=== PATIENT | female | born 1940 | race Caucasian/White ===

== ENCOUNTER 2016-07-20 13:58 | Emergency (ER) | payer MEDICARE ==
[2016-07-20 14:40] LABS: BASOPHILS 0.2 %; BASOPHILS ABSOLUTE 0.02 10/3/uL (0.0-0.16); EOSINOPHILS 0.6 %; EOSINOPHILS ABSOLUTE 0.06 10/3/uL (0.0-0.53); HEMATOCRIT 45.9 % (36.0-48.0); IMMATURE GRANULOCYTES 0.2 %; IMMATURE GRANULOCYTES ABSOLUTE 0.02 10/3/uL (0.0-0.11); LYMPHOCYTES 26.9 %; LYMPHOCYTES ABSOLUTE 2.73 10/3/uL (0.67-4.30); MEAN CORPUS HGB CONC 32.7 g/dL (32.0-36.0); MEAN CORPUSCULAR VOLUME 88.6 fL (80-100); MEAN PLATELET VOLUME 10.5 fL (9.2-13.0); MONOCYTES 5.7 %; MONOCYTES ABSOLUTE 0.58 10/3/uL (0.21-1.20); NEUTROPHILS 66.4 %; NEUTROPHILS ABSOLUTE 6.75 10/3/uL (2.02-8.40); PLATELET COUNT 238 10/3/uL (150-400); RBC DISTRIBUTION WIDTH 15.8 % (12.0-16.0); RED CELL COUNT 5.18 10/6/uL (4.0-5.6); WHITE BLOOD CELLS 10.2 10/3/uL (4.5-10.5)
[2016-07-20 14:41] LABS: MANUAL DIFF NO %
[2016-07-20 14:49] LABS: INTERNATIONAL NORMAL RATI 1.1 UNITS (-); PARTIAL THROMBO TIME 34.9 SEC (22.5-37.2); PROTIME (NOT ORD) 13.9 SEC (12.0-14.5)
[2016-07-20 14:57] LABS: CALCIUM, SERUM 9.2 MG/DL (8.5-10.4); CHEST PAIN PROFILE TAT 0 Hrs 21 Mins; CHLORIDE, SERUM 107 MMOL/L (96-112); CREATININE 1.23 MG/DL (0.55-1.02); GFR AFRICAN AMERICAN 50 ML/MIN (>=60); GFR NON AFRICAN AMERICAN 43 ML/MIN (>=60); GLUCOSE, SERUM 94 MG/DL (60-99); POTASSIUM, SERUM 4.7 MMOL/L (3.5-5.3); SODIUM, SERUM 139 MMOL/L (135-148); TROPONIN I <0.02 NG/ML (<0.05)
[2016-07-20 15:05] LABS: BUN (BLOOD UREA NITROGEN) 25 MG/DL (6-23); CO2 (CARBON DIOXIDE) 20 MMOL/L (24-34)
== END 2016-07-20 15:00 | disposition left against medical advice (07) ==
LOC: ER 13:58
PROVIDERS: Emergency Medicine
DX: R07.9 Chest pain, unspecified (principal); Z53.21 Procedure and treatment not carried out due to patient leaving prior to being seen by health care provider
CPT/HCPCS: 71020; 80048; 83735; 84484; 85025; 85610; 85730; 93005

== ENCOUNTER 2016-07-22 10:35 | Inpatient (IN) | payer MEDICARE, BC ==
--- NOTE | ~2016-07-22 | CN ---
Consultation Report [facility] [address] [place]. [address] NAME: RADHA LE : 42 STATUS : ADM IN PAT#: [id number] AGE: 76 ADM/REG DATE : 07/22/16 MR#: [id number] REPORT SERV DATE: 07/23/16 DICTATED BY: BABAK BELTRAN DATE: 07/22/16 REPORT STATUS : Draft TRANSCRIBED BY: MODL DATE: 07/22/16 CONSULTATION DATE OF CONSULTATION: 07/22/2016 This is a late note dictation for consult which took place at roughly 1300 on 07/22/2016. CHIEF COMPLAINT: Right upper quadrant pain. HISTORY OF PRESENT ILLNESS: This is a 76-year-old female, evaluated in the emergency department for four to five day history of right upper quadrant pain which radiates to the epigastrium and the back. She actually presented to the emergency department two days prior but left without being evaluated per patient report. She denies any fever at home but does endorse some chills. In the emergency department, she was evaluated with CT scan which showed cholelithiasis, gallbladder wall thickening to roughly 7 mm, surrounding inflammation, pericholecystic fluid consistent with cholecystitis. Additionally, white blood cell count was 14.7 and total bilirubin of 2.0 with direct component of 1.2. She did show mild JUAN with creatinine increase up to 1.1. Her stay in the emergency department was complicated by new onset atrial fibrillation with heart rate into the 160s which by the time of this consultation, the patient had been placed on diltiazem drip and heart rate had slowed, was still in the 130s. She denies any history of atrial fibrillation, is not on any anticoagulation. General Surgery asked to evaluate for acute cholecystitis. The patient does endorse nausea and vomiting associated with the right upper quadrant pain and does state that she has postprandial pain especially after fatty foods. She denies any diarrhea but has been unable to eat for the last three to four days. REVIEW OF SYSTEMS: The patient denies any mental illness or change in memory status. She denies any numbness or tingling, loss of hearing loss or speech or other neurologic symptoms. Constitutional symptoms are negative for weight loss, night sweats or fever. She has had no change in her vision and denies any scleral icterus. She denies any tinnitus or decreased hearing. She did not have any recent colds or sinus drainage or sinus pain. She denies cough, tonsillar exudates or sore throat. She denies any shortness of breath, dyspnea on exertion or chest pain. She does feel palpitations and endorses them during the interview. Otherwise, she has no cardiovascular complaints, radiating chest pain or jaw pain. She has had no change in her stooling habits and denies any acholic stools. She denies any endocrine abnormalities, hot or cold flashes or unexplained weight gain or loss. No goiters. There has been no change in her urinary habits and she denies any dark-colored urine or pneumaturia. She denies any history of liver, gallbladder or pancreas disease. She denies reflux or gastric ulcers. 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 She also reports left knee pain and has had arthroscopy in the past. No known knee replacements. She denies any depression or anxiety or any other mood disorders. The rest review of systems are otherwise negative except as per HPI. Consultation Report [address] [place]. [address] NAME: RADHA LE : 42 STATUS : ADM IN [facility]#: [id number] AGE: 76 ADM/REG DATE : 07/22/16 MR#: [id number] REPORT SERV DATE: 07/23/16 DICTATED BY: BABAK BELTRAN DATE: 07/22/16 REPORT STATUS : Draft TRANSCRIBED BY: REINA DATE: 07/22/16 PAST MEDICAL HISTORY: 1. Coronary artery disease with history of coronary artery intervention 14 years ago with stent placement. 2. Obesity. 3. Dyslipidemia. 4. Hypertension. 5. 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 6. New onset atrial fibrillation. PAST SURGICAL HISTORY: The patient underwent hysterectomy, has had tonsillectomy, and appendectomy in the past. MEDICATIONS: Please see the patient's electronic medical record for complete list and dosing. Following is a list only. 1. Aspirin. 2. Cholecalciferol. 3. Coenzyme Q10. 4. Flaxseed oil. 5. Lisinopril and hydrochlorothiazide. 6. Magnesium oxide. 7. Probiotic. 8. Multivitamin. 9. [place] spray as needed. ALLERGIES: TO PENICILLIN AND SULFA. FAMILY HISTORY: Significant for brother with diabetes and chronic kidney disease. SOCIAL HISTORY: The patient quit smoking 14 years ago after her coronary artery intervention. She does drink occasional alcohol roughly once every week or so. She denies any use of recreational or illegal drugs. She reports being retired from the [employer] and stays very active. PHYSICAL EXAMINATION: VITAL SIGNS: Updated vital signs, temperature 97.3, heart rate 115, respirations 20, blood pressure 112/59. GENERAL APPEARANCE: She is alert and oriented, in no distress. She is pleasant in conversation. HEAD, EYES, EARS, NOSE, AND THROAT: There is no scleral icterus. There are no facial lesions. Conjunctiva and oropharynx are pink and moist. Extraocular muscles are grossly intact. Hearing is grossly normal. There is no rhinorrhea. NECK: Examination of the neck reveals no cervical lymphadenopathy. No thyromegaly. Trachea is midline. CHEST: Clear lungs bilaterally with no wheezes or rhonchi. HEART: Heart rate is irregularly irregular and pulses are palpable in the extremities. Consultation Report [address] [address] NAME: RADHA LE : 42 STATUS : ADM IN [facility]#: [id number] AGE: 76 ADM/REG DATE : 07/22/16 MR#: [id number] REPORT SERV DATE: 07/23/16 DICTATED BY: BABAK BELTRAN DATE: 07/22/16 REPORT STATUS : Draft TRANSCRIBED BY: REINA DATE: 07/22/16 ABDOMEN: Soft, nondistended, and obese. She has well healed lower abdominal scar. She is tender to palpation in the right upper quadrant. There are no hernias. EXTREMITIES: Examination of extremities reveals cyanosis on the right with weakness at the right lower extremity. She has some swelling and tenderness to palpation of the right leg with some mild pitting edema below the knee. She is able to move her extremities. PSYCHIATRIC: Appropriate mood and affect with normal speech patterns. NEUROLOGIC: Significant for weakness in the right lower extremity. Otherwise, no focal deficits. LABORATORY RESULTS: Significant for white blood cell count of 14.3, hemoglobin of 14.1, platelets of 232. Her lactate is 1.1. Her comprehensive metabolic panel is significant for a mild metabolic alkalosis with carbon dioxide of 20, creatinine 1.1, glucose of 115. Total bilirubin is 2.0 and direct component is 0.4. Troponins are negative and lipase is 148. CT scan of the abdomen and pelvis as per history of present illness. ASSESSMENT AND PLAN: This is a 76-year-old female with likely acute cholecystitis and new onset atrial fibrillation. At this time, there is no surgical emergency. We will opt for medical optimization to better control of heart rate as cardiac consultation is pending at this time. The patient will be kept n.p.o. with administration of IV antibiotics and pain medicine. She will need cholecystectomy. Given her elevated bilirubin, we will recheck a CMP in the morning. Plans for possible cholecystectomy tomorrow pending the outcome of cardiac workup. She will be admitted to the Hospitalist on the Telemetry Floor. We will gladly follow along. Plan was discussed with Dr. Beltran. DICTATED BY: MD CHING Lazo/MODL Herrera Beltran M.D. / [id number] CC: Usha Juarez M.D.
--- NOTE | ~2016-07-22 | OP ---
Record Of Operation [facility] [address] [place]. [address] NAME: RADHA LE : 42 STATUS : ADM IN [facility]#: [id number] AGE: 76 ADM/REG DATE : 07/22/16 MR#: [id number] REPORT SERV DATE: 07/24/16 DICTATED BY: BABAK BELTRAN DATE: 07/23/16 REPORT STATUS : Draft TRANSCRIBED BY: MODL DATE: 07/23/16 DATE OF PROCEDURE: 07/23/2016 PREOPERATIVE DIAGNOSIS: Acute cholecystitis. POSTOPERATIVE DIAGNOSIS: Acute cholecystitis. PROCEDURE: Laparoscopic cholecystectomy. SURGEON: Herrera Beltran M.D. RESIDENT: Chema Hernandez MD. ANESTHESIA: General. ESTIMATED BLOOD LOSS: 30 mL. SPECIMENS: Gallbladder. COMPLICATIONS: None. INDICATIONS: This is a 76-year-old female who presented to the hospital with severe abdominal pain, was worked up and found have imaging as well as signs and symptoms associated with acute cholecystitis, Surgery was consulted, and the patient was consented to the risks, benefits, alternatives of laparoscopic cholecystectomy and likes to go forward. DESCRIPTION OF PROCEDURE: The patient was taken to the operating room and placed on the operating table. She was prepped and draped in a normal sterile fashion after which a formal time-out was performed. Skin edges were used to grasp at the umbilicus after which incision was made at the umbilicus, soft tissue dissected down to the level of the fascia. The patient had a very large abdominal wall and this was achieved with some difficulty. The fascia was incised after which trocar was placed in the abdomen. The abdomen was insufflated. The camera was placed in the 10 trocar to inspect the abdomen, there was found to be no injury to the bowel underneath the trocar placement. After this was done, three 5 mm trocars were placed, two in the right subcostal and one in the xiphoid area. Once this was done, the gallbladder was able to be seen, it was very edematous and inflamed. We were unable to grasp it initially and actually a small hole was made in the liver with a grasper and the gallbladder was suctioned out, most of the bile was found to be dark brown, cloudy bile. Once this was done, there were found to be several attachments of omentum in the colon to the gallbladder and these were carefully and bluntly taken down using blunt suction device as well as [place] forceps. Once these were taken down, we began to address the ductal structures and these were dissected out again using a [place] forceps as well as suction device. Cystic duct was located relatively easy; however, what appeared to be a replaced right hepatic or accessory artery, and this was carefully dissected around both sides until the critical view of safety could be achieved with branch of the artery coming directly off going into the gallbladder. Once we were comfortable with the anatomy, again Record Of Operation [facility] [address] [place]. [address] NAME: RADHA LE : 42 STATUS : ADM IN PAT#: [id number] AGE: 76 ADM/REG DATE : 07/22/16 MR#: [id number] REPORT SERV DATE: 07/24/16 DICTATED BY: BABAK BELTRAN DATE: 07/23/16 REPORT STATUS : Draft TRANSCRIBED BY: MODL DATE: 07/23/16 having seen the critical view of safety, locking clips were placed in the cystic duct and cystic artery, and these were ligated with sharp scissors. Once this was done, hook electrocautery was used to dissect the gallbladder off the gallbladder fossa and the gallbladder wall was very edematous, then slowly, however, the gallbladder was able to be removed. Initially, we had to leave a portion of the gallbladder wall in the liver, but once the gallbladder was taken out of the field, this gallbladder wall was dissected off and included with the specimen. Several points on the gallbladder fossa were cauterized for effective hemostasis. We did notice some bowel staining from the edge of the liver near where the ductal structure was running up and down well away from the cord structures before. This was investigated and washed off and found to have a small leakage of bile with small accessory biliary duct identified. Once this was done, several clips were placed over this duct until leaking stopped, so we watched this duct for a long period of time after and were satisfied that the bile leaking had stopped. Due to this, however, a 14-Arturo drain was placed in the lateral most trocar hole and left in the patient. Once this was done, the abdomen was thoroughly washed out with saline and irrigated out. The trocars were removed under direct visualization with no evidence of any bleeding and it was desufflated with the tip of pull-tip sucker. The fascial incision was closed with 0 Vicryl suture, essentially two sutures in [id number] fashion with good fascial closure. The umbilical incision was thoroughly washed out after which a drain stitch was placed over the drain. The two 5 mm trocars closed with one 4-0 Monocryl suture was placed in the umbilicus, but given the large depth of the umbilicus, we elected to leave the deeper portion of the incision open for drainage. This was dressed with a 4 x 4 and tape. The other incisions dressed with Band-Aids. The patient was subsequently extubated without event and is being taken to the PACU. DICTATED BY: MD MARQUEZ Willis/REINA Herrera Beltran M.D. / [id number] CC: Usha Juarez M.D.
--- NOTE | ~2016-07-22 | CN ---
Consultation Report [facility] [address] [place]. [address] NAME: RADHA LE : 42 STATUS : ADM IN PAT#: [id number] AGE: 76 ADM/REG DATE : 07/22/16 MR#: [id number] REPORT SERV DATE: 07/22/16 DICTATED BY: DATE: REPORT STATUS : Draft TRANSCRIBED BY: MODAndreea DATE: 07/22/16 CONSULTATION DATE OF CONSULTATION: 07/22/2016 PRIMARY [employer] EXECUTIVE PRODUCER: Eduin Carpenter M.D. CHIEF COMPLAINT/REASON FOR CONSULT: Atrial fibrillation with RVR. HISTORY OF PRESENT ILLNESS: Mrs. Radha Le is a very pleasant 76-year-old female, who has been having vomiting and abdominal pain. She visited the emergency department on 07/20/2016 and left at that time without being seen because she was frustrated with the length of time it took for her to be evaluated. She re-presented to the hospital today with increasing vomiting and abdominal pain. She has been diagnosed with cholecystitis. She has had a four to five-day history of right upper quadrant pain radiating heating to her epigastrium and back. She has a white blood cell count of over 14,000 currently, and an inflammation was noted in the gallbladder wall, it was also thick. In the emergency department on the , she was found to be in normal sinus rhythm. Today, she is in atrial fibrillation with RVR. The patient does know fluttering over the past four months. This mainly consisted of skipping when she laid down at night. She has also been noting burping and hiccups. She is increasingly short of breath and fatigued. EKG today demonstrates atrial fibrillation with rapid ventricular response with a heart rate of 169 beats per minute in the emergency department, which has improved on diltiazem drip to 118 beats per minute. PAST MEDICAL HISTORY: 1. Hypertension. 2. Hyperlipidemia. 3. 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 4. History of polio. 5. Morbid obesity. SOCIAL HISTORY: The patient quit smoking 14 years ago. She drinks alcohol occasionally about one to two times per week. She does not use extracurricular drugs. FAMILY HISTORY: Significant for brother with diabetes and chronic kidney disease, who at the age of 42. OUTPATIENT MEDICATIONS: Included: 1. Aspirin 325 mg p.o. daily. 2. Cholecalciferol. 3. CoQ10. Consultation Report [facility] [address] [place]. [address] NAME: RADHA LE : 42 STATUS : ADM IN PAT#: [id number] AGE: 76 ADM/REG DATE : 07/22/16 MR#: [id number] REPORT SERV DATE: 07/22/16 DICTATED BY: DATE: REPORT STATUS : Draft TRANSCRIBED BY: MODL DATE: 07/22/16 4. Flaxseed oil. 5. Lisinopril and hydrochlorothiazide. 6. Magnesium oxide. 7. Probiotics. 8. Multivitamin. 9. [place]. REVIEW OF SYSTEMS: All systems were reviewed and are negative except for dictated in HPI. PHYSICAL EXAMINATION: GENERAL: In the emergency department, the patient presented with a temperature of 98.7, pulse of 139 beats per minute, respirations 16, and oxygen saturations 97%. GENERAL: Mrs. Le is a well-groomed, well-appearing 76-year-old female, in no distress at this time. NECK: No jugular venous distention. No carotid bruits. HEART: Irregular. Tachycardic soft, S1, S2. I could not appreciate murmurs, rubs, or gallops. LUNGS: Clear to auscultation in all felix. ABDOMEN: Obese. Tender in the right upper quadrant. EXTREMITIES: Warm and well perfused. There is no pitting edema present. DATA: An EKG performed in the emergency department demonstrated atrial fibrillation with rapid ventricular response at 169 beats per minute. There are no ischemic ST-T segment changes. LABORATORY RESULTS: Note a white blood cell count of 14.3, hemoglobin of 14, hematocrit of 41.9, and a platelet count of 232. There is a left shift. Sodium 137, potassium 4.5, BUN 21, creatinine 1.11, glucose 115. Total bilirubin is 2. Chest x-ray performed in the emergency department for "chest heaviness" did not document any evidence of acute cardiopulmonary disease. CT of the abdomen and pelvis demonstrated pericholecystic fat stranding and suspected wall edema and thick wall. There was a high density material within the gallbladder. These findings were consistent with acute cholecystitis. IMPRESSION/REPORT/AND PLAN: 1. Acute cholecystitis. 2. Leukocytosis secondary to above. 3. Atrial fibrillation patient with rapid ventricular response, which is paroxysmal. The patient was in normal sinus rhythm on 07/20/2016 in the emergency department. 4. History of coronary artery disease, status post PCI in 2001. 5. Morbid obesity. 6. Hypertension. Consultation Report [place] [address] [place]. [address] NAME: RADHA LE : 42 STATUS : ADM IN [facility]#: [id number] AGE: 76 ADM/REG DATE : 07/22/16 MR#: [id number] REPORT SERV DATE: 07/22/16 DICTATED BY: DATE: REPORT STATUS : Draft TRANSCRIBED BY: MODL DATE: 07/22/16 7. Hyperlipidemia. RECOMMENDATIONS: 1. My recommendation that the infected inflamed gallbladder that be removed and then the patient's heart rate will likely normalize. 2. We would recommend beta-blockers for now. I have written these for you. 3. There is no cardiac contraindication to her emergent surgery. 4. Consider anticoagulation for primary stroke prevention postoperatively. It has been my pleasure to participate in care of this patient. ERIKA/REINA Phyllis Granados M.D. / [id number] CC: Usha Juarez M.D. Mark Thel, M.D.
--- NOTE | ~2016-07-22 | DS ---
Discharge Summary [facility] [address] [facility] [place]. [address] NAME: RADHA LE : 42 STATUS : DIS IN PAT#: [id number] AGE: 76 ADM/REG DATE : 07/22/16 MR#: [id number] REPORT SERV DATE: 07/27/16 DICTATED BY: MAURICE SIN DATE: 07/26/16 REPORT STATUS : Draft TRANSCRIBED BY: REINA DATE: 07/26/16 ADMISSION DATE: 07/22/2016 DISCHARGE DATE: 07/26/2016 DISCHARGE DIAGNOSES: 1. Acute cholecystitis, status post cholecystectomy. 2. Paroxysmal atrial fibrillation with rapid ventricular response, currently stable and in sinus rhythm. 3. Hypertension. 4. Obesity. 5. Osteoarthritis. 6. Hyperlipidemia. 7. Polio with right leg weakness. 8. Coronary artery disease with a history of PCI, 14 years ago. CONSULTANTS DURING THIS HOSPITALIZATION: 1. Dr. Leonard Sanders of General Surgery. 2. Phyllis Granados M.D. and Dr. Eduin Carpenter of Cardiology. INVASIVE PROCEDURES DURING THIS HOSPITALIZATION: Laparoscopic-assisted cholecystectomy performed by Dr. Sanders. BRIEF HISTORY OF PRESENT ILLNESS: The patient is a 76-year-old, female, presented to [facility]'s Emergency Room on 07/22/2016 at 0947 hours with complains of chest heaviness, vomiting, found to have atrial fibrillation with RVR and acute cholecystitis. So she was admitted. For detailed history and physical exam, please see note dictated by Dr. Eva Isidro on 07/22/2016. HOSPITAL COURSE: After being admitted to the hospital, this patient was seen by Cardiology and recommended Lopressor. Her rate was controlled. Dr. Sanders saw the patient in consultation because of acute cholecystitis and we recommended that we will hold anticoagulation until surgery was performed. We observed her liver function studies and she remained stable. On day after admission, this patient was taken to the operating room and surgery was performed. Patient had an uneventful surgery. Postoperatively, this patient had some bleeding from her incisions. So we continued to observe her and monitor her H and H. Her H and H has remained stable. Surgery has okayed restarting her anticoagulation. We will start Xarelto 20 mg once daily without loading dose for atrial fibrillation. Dr. Carpenter has signed off her care and surgery has signed off her care as well. Because she had significant acute cholecystitis and required a BRAYDEN drain for 24 hours postoperatively it is felt that this patient should finish a full seven-day course of oral antibiotics. Prescriptions for antibiotics are given. She remained stable otherwise and is being discharged in stable condition. DISCHARGE DISPOSITION: Home. DISCHARGE ACTIVITY: As tolerated. Discharge Summary [place] [id number] [address] [place] [address] NAME: RADHA LE : 42 STATUS : DIS IN PAT#: [id number] AGE: 76 ADM/REG DATE : 07/22/16 MR#: [id number] REPORT SERV DATE: 07/27/16 DICTATED BY: MAURICE SIN DATE: 07/26/16 REPORT STATUS : Draft TRANSCRIBED BY: REINA DATE: 07/26/16 DISCHARGE DIET: Low-sodium diet. DISCHARGE MEDICATIONS: Aspirin 162.5 mg once daily, WelChol 1875 mg p.o. daily, Levaquin 750 mg once daily for 3 days, Lopressor 50 mg twice daily, Xarelto 20 mg once daily, Flagyl 500 mg every eight hours for three more days, lisinopril and hydrochlorothiazide 20/12.5 mg one tablet daily to restart after 3 days, multivitamins one tablet daily, vitamin D3 1000 units daily, [place] saline mist as directed, Soy isoflavones per patient's regimen, flaxseed oil per patient's regimen, coenzyme Q10 100 mg daily, magnesium oxide 400 mg daily, and probiotics one capsule daily. DISCHARGE FOLLOWUP: With Dr. Carpenter in two weeks, with Dr. Sanders in two weeks, with Dr. Carlota Corral in two to three weeks. More than 30 minutes spent planning this patient's discharge, reconciling medications, writing prescriptions, discussing hospital care, and followup with the patient and documenting this discharge. SARA/REINA Maurice Sin M.D. / [id number] CC: Usha Juarez M.D. Mark Thel, M.D. J. Daniel Stanley M.D.
--- NOTE | ~2016-07-22 | HP ---
History And Physical [id number] [place]. [address] NAME: RADHA LE : 42 STATUS : ADM IN [facility]#: [id number] AGE: 76 ADM/REG DATE : 07/22/16 MR#: [id number] REPORT SERV DATE: 07/22/16 DICTATED BY: BO ISIDRO DATE: 07/22/16 REPORT STATUS : Draft TRANSCRIBED BY: REINA DATE: 07/22/16 DATE OF ADMISSION: 07/22/2016 CHIEF COMPLAINT: Abdominal pain, nausea, vomiting, and palpitations. HISTORY OF PRESENT ILLNESS: The patient is a very pleasant 76-year-old white female. She has a past history of CAD with PTCI over 14 years ago. She rarely sees Dr. Carpenter. She also has a history of polio as a child and has some persistent right leg weakness. The patient reports that about two months ago, she noted heart palpitations mostly when she is lying in bed at night. She states her heart was racing. She had associated shortness of breath and she states she had some generalized weakness over the last couple of months. She never saw a physician and reported the symptoms. She states about four to five days ago, she developed intractable nausea and vomiting with right upper quadrant pain. She states she previously had some episodes of right upper quadrant pain after eating German food, but these seemed to resolve, but this episode persisted and the associated nausea and vomiting concerned her. She did not have diarrhea. She may have had a fever at home, but she did not document it. She has basically been unable to keep food or liquids down for the last four days and she has intense pain in her right upper quadrant. PAST MEDICAL HISTORY: 1. CAD with history of PTCI 14 years ago. 2. Obesity. 3. Hyperlipidemia. 4. Hypertension. 5. Polio with right leg weakness, osteoarthritis. SURGICAL HISTORY: 1. Hysterectomy. 2. Tonsillectomy. 3. Appendectomy. ALLERGIES: PENICILLIN AND SULFA. SOCIAL HISTORY: She quit smoking 14 years ago. She previously smoked one-half to one pack per day for 20-30 years. She is . She has grown children and she drinks occasional alcohol. FAMILY HISTORY: Positive for diabetes and late-onset CVA in her grandmother. Her brother had CVA and prematurely. Her dad at 94 of old age and her mom lives well into her 80s. HOME MEDICATIONS: Reviewed and attached. REVIEW OF SYSTEMS: Full 10-point review of systems obtained. Pertinent positives already mentioned in the HPI. History And Physical [address] [address] NAME: RADHA LE : 42 STATUS : ADM IN PAT#: [id number] AGE: 76 ADM/REG DATE : 07/22/16 MR#: [id number] REPORT SERV DATE: 07/22/16 DICTATED BY: BO ISIDRO DATE: 07/22/16 REPORT STATUS : Draft TRANSCRIBED BY: REINA DATE: 07/22/16 PHYSICAL EXAMINATION: VITAL SIGNS: Currently, her pulse is 140-160, blood pressure is stable at 132/86, temp is 98.7, respiratory rate 16, and sats are 97%. GENERAL: Very pleasant, talkative white female. HEENT: Normocephalic, atraumatic. Throat is clear. NECK: Supple. HEART: Tachycardic. LUNGS: Grossly clear. ABDOMEN: Soft, nondistended. She has right upper quadrant tenderness present upon palpation consistent with Du sign. EXTREMITIES: Without rashes, although her right foot appears somewhat blue and discolored and it is cold. She does have excellent pulses in that foot. Her left foot has excellent pulses. It is warm. She does have some swelling in the right leg also and some weakness in the right leg. LABORATORY AND X-RAY: White count is 14.3, H and H 14 and 42, platelets are 232. Coags are normal. Basic metabolic panel: Sodium 137, potassium 4.5, chloride 103, CO2 of 20, BUN and creatinine 21 and 1.11, glucose 115. LFTs are normal other than a total bilirubin which is mildly up at 2.0. Her lipase is normal. Troponin is 0.02. CT of the abdomen and pelvis shows acute cholecystitis, severe right hip osteoarthritis. Chest x-ray shows stable appearance with a torturous aorta. EKG shows atrial fibrillation with RVR. ASSESSMENT/PLAN: 1. Acute cholecystitis as evidenced by nausea, vomiting, positive Du sign, abdominal pain, clinical picture consistent with this along with CT imaging. We will make her n.p.o., provide aggressive fluid resuscitation, obtain some blood cultures, procalcitonin. We will place her empirically on Rocephin and Flagyl due to her penicillin allergy. We will consult surgery as she will need operative management. 2. Atrial fibrillation with rapid ventricular response, likely multifactorial. Suspect some of this is due to volume. I am going to hydrate her aggressively. Give her 2 L here in the ER, then another 2 L over the next several hours. Then, we will place her on some maintenance fluids. Hopefully, by correcting her volume status, her heart rate will improve. I am also going to place her on a Cardizem drip. She is at 5 now. We will increase her to 10. I think given that she has probably been in this rhythm off and on for two months and she has established Dr. Carpenter and is likely going to have surgery in the next 48 hours. We would like them to get involved. We will have Cardiology see her in consultation. I am going to hold off on anticoagulation since she is likely going to have surgery in the next 24-48 hours. We will try to control her rate. We will obtain an echo and two more sets of cardiac enzymes. It may be that they could STEFANIA her and cardiovert her and we will defer to them. 3. History of coronary artery disease with percutaneous transluminal coronary intervention. Again, two more sets of enzymes and echocardiogram, working up her atrial fibrillation. History And Physical [address] [address] NAME: RADHA LE : 42 STATUS : ADM IN [facility]#: [id number] AGE: 76 ADM/REG DATE : 07/22/16 MR#: [id number] REPORT SERV DATE: 07/22/16 DICTATED BY: BO ISIDRO DATE: 07/22/16 REPORT STATUS : Draft TRANSCRIBED BY: MODAndreea DATE: 07/22/16 4. 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 5. Right lower extremity edema. She has normal pulses in that leg. This has been going on for months. She has had a previous duplex, she states that was negative. We are going to redo it here just to be sure that the duplex is negative, we would not pursue any further workup. I think this is likely related to her long-term neurological injury on that side. 6. Deep venous thrombosis prophylaxis with subcutaneous Lovenox. 7. Disposition, pending above. RITA/MODL Bo Isidro M.D. / [id number] CC: Usha Juarez M.D. Mark Thel, M.D.
[2016-07-22 10:35] LABS: BASOPHILS 0.1 %; BASOPHILS ABSOLUTE 0.02 10/3/uL (0.0-0.16); EOSINOPHILS 0.1 %; EOSINOPHILS ABSOLUTE 0.01 10/3/uL (0.0-0.53); HEMATOCRIT 41.9 % (36.0-48.0); HEMOGLOBIN 14.1 g/dL (12.0-16.0); IMMATURE GRANULOCYTES 0.2 %; IMMATURE GRANULOCYTES ABSOLUTE 0.03 10/3/uL (0.0-0.11); LYMPHOCYTES 20.5 %; LYMPHOCYTES ABSOLUTE 2.94 10/3/uL (0.67-4.30); MEAN CORPUS HGB CONC 33.7 g/dL (32.0-36.0); MEAN CORPUSCULAR HEMOGLOB 29.3 pg (26.0-34.0); MEAN CORPUSCULAR VOLUME 87.1 fL (80-100); MEAN PLATELET VOLUME 10.9 fL (9.2-13.0); MONOCYTES 9.1 %; NEUTROPHILS ABSOLUTE 10.02 10/3/uL (2.02-8.40); PLATELET COUNT 232 10/3/uL (150-400); RBC DISTRIBUTION WIDTH 15.9 % (12.0-16.0); RED CELL COUNT 4.81 10/6/uL (4.0-5.6)
[2016-07-22 10:36] LABS: ER CBC TAT 0 Hrs 08 Mins; MANUAL DIFF NO %; WHITE BLOOD CELLS 14.3 10/3/uL (4.5-10.5)
[2016-07-22 10:43] LABS: INTERNATIONAL NORMAL RATI 1.2 UNITS (-); PARTIAL THROMBO TIME 28.3 SEC (22.5-37.2); PROTIME (NOT ORD) 14.7 SEC (12.0-14.5)
[2016-07-22 10:57] LABS: ALBUMIN 3.7 G/DL (3.5-5.0); ALKALINE PHOSPHATASE 109 U/L (45-117); BUN (BLOOD UREA NITROGEN) 21 MG/DL (6-23); CHEST PAIN PROFILE TAT 0 Hrs 29 Mins; CHLORIDE, SERUM 103 MMOL/L (96-112); CO2 (CARBON DIOXIDE) 20 MMOL/L (24-34); CREATININE 1.11 MG/DL (0.55-1.02); DIRECT BILIRUBIN 0.4 MG/DL (0.0-0.4); GFR AFRICAN AMERICAN 56 ML/MIN (>=60); GFR NON AFRICAN AMERICAN 49 ML/MIN (>=60); GLUCOSE, SERUM 115 MG/DL (60-99); INDIRECT BILIRUBIN(NOT ORDER) 1.6 MG/DL (0.1-0.9); POTASSIUM, SERUM 4.5 MMOL/L (3.5-5.3); SGOT(AST) 31 U/L (5-40); SGPT(ALT) 32 U/L (5-65); SODIUM, SERUM 137 MMOL/L (135-148); TOTAL PROTEIN 7.6 G/DL (6.0-8.5); TROPONIN I <0.02 NG/ML (<0.05)
[2016-07-22] MEDS ORDERED: WELCHOL 625 MG625 MG PO (12:08)
[2016-07-22] MEDS ORDERED: PRINZIDE1 TA1 PO (12:08)
[2016-07-22] MEDS ORDERED: ASABAYER PO (12:12)
[2016-07-22] MEDS ORDERED: MULTIVITAMI1 PO (12:12)
[2016-07-22] MEDS ORDERED: VITAMIN D31000 UNIT PO (12:12)
[2016-07-22] MEDS ORDERED: [UNRECOGNIZED DRUG - OTHER] PO (12:13)
[2016-07-22] MEDS ORDERED: OCEAN NAS (12:13)
[2016-07-22] MEDS ORDERED: CO Q-10100 MG PO (12:14)
[2016-07-22] MEDS ORDERED: MAGOX4 PO (12:14)
[2016-07-22] MEDS ORDERED: FLAXSEED OIL1000 MG PO (12:14)
[2016-07-22] MEDS ORDERED: PROBIOTIC PO (12:14)
[2016-07-22 16:20] LABS: FREE T4 1.36 NG/DL (0.76-1.46)
[2016-07-22 17:33] LABS: LACTATE 1.1 MMOL/L (0.3-2.4)
[2016-07-22 17:50] LABS: PROCALCITONIN 0.05 ng/mL (<0.5)
[2016-07-22 19:44] LABS: LACTATE 1.1 MMOL/L (0.3-2.4)
[2016-07-23 03:03] LABS: BASOPHILS 0.2 %; BASOPHILS ABSOLUTE 0.02 10/3/uL (0.0-0.16); EOSINOPHILS 0.4 %; EOSINOPHILS ABSOLUTE 0.04 10/3/uL (0.0-0.53); HEMOGLOBIN 11.8 g/dL (12.0-16.0); IMMATURE GRANULOCYTES 0.1 %; IMMATURE GRANULOCYTES ABSOLUTE 0.01 10/3/uL (0.0-0.11); LYMPHOCYTES 26.7 %; LYMPHOCYTES ABSOLUTE 2.46 10/3/uL (0.67-4.30); MEAN CORPUSCULAR HEMOGLOB 28.5 pg (26.0-34.0); MEAN PLATELET VOLUME 11.1 fL (9.2-13.0); MONOCYTES 10.2 %; MONOCYTES ABSOLUTE 0.94 10/3/uL (0.21-1.20); NEUTROPHILS 62.4 %; NEUTROPHILS ABSOLUTE 5.75 10/3/uL (2.02-8.40); PLATELET COUNT 201 10/3/uL (150-400); RBC DISTRIBUTION WIDTH 16.3 % (12.0-16.0); RED CELL COUNT 4.14 10/6/uL (4.0-5.6); WHITE BLOOD CELLS 9.2 10/3/uL (4.5-10.5)
[2016-07-23 03:11] LABS: HEMATOCRIT 37.2 % (36.0-48.0); MANUAL DIFF NO %; MEAN CORPUS HGB CONC 31.7 g/dL (32.0-36.0); MEAN CORPUSCULAR VOLUME 89.9 fL (80-100)
[2016-07-23 04:08] LABS: BUN (BLOOD UREA NITROGEN) 19 MG/DL (6-23); CALCIUM, SERUM 8.1 MG/DL (8.5-10.4); CHLORIDE, SERUM 110 MMOL/L (96-112); CO2 (CARBON DIOXIDE) 21 MMOL/L (24-34); CREATININE 0.78 MG/DL (0.55-1.02); GFR AFRICAN AMERICAN 86 ML/MIN (>=60); GFR NON AFRICAN AMERICAN 74 ML/MIN (>=60); GLUCOSE, SERUM 95 MG/DL (60-99); SGOT(AST) 21 U/L (5-40); SGPT(ALT) 29 U/L (5-65); SODIUM, SERUM 142 MMOL/L (135-148); TOTAL PROTEIN 6.3 G/DL (6.0-8.5); TROPONIN I <0.02 NG/ML (<0.05)
[2016-07-23 04:11] LABS: A/G RATIO 0.9 (0.7-1.9); ALBUMIN 2.9 G/DL (3.5-5.0); ALKALINE PHOSPHATASE 86 U/L (45-117); GLOBULIN 3.4 G/DL (2.5-4.1)
[2016-07-24 05:27] LABS: BASOPHILS 0 %; EOSINOPHILS 0 %; HEMATOCRIT 35.5 % (36.0-48.0); HEMOGLOBIN 11.3 g/dL (12.0-16.0); IMMATURE GRANULOCYTES 0.1 %; IMMATURE GRANULOCYTES ABSOLUTE 0.01 10/3/uL (0.0-0.11); LYMPHOCYTES 10.2 %; LYMPHOCYTES ABSOLUTE 0.86 10/3/uL (0.67-4.30); MANUAL DIFF NO %; MEAN CORPUS HGB CONC 31.8 g/dL (32.0-36.0); MEAN CORPUSCULAR HEMOGLOB 28.8 pg (26.0-34.0); MEAN CORPUSCULAR VOLUME 90.3 fL (80-100); MEAN PLATELET VOLUME 10.9 fL (9.2-13.0); MONOCYTES 2.7 %; MONOCYTES ABSOLUTE 0.23 10/3/uL (0.21-1.20); NEUTROPHILS ABSOLUTE 7.37 10/3/uL (2.02-8.40); PLATELET COUNT 178 10/3/uL (150-400); RBC DISTRIBUTION WIDTH 16.3 % (12.0-16.0); RED CELL COUNT 3.93 10/6/uL (4.0-5.6); WHITE BLOOD CELLS 8.5 10/3/uL (4.5-10.5)
[2016-07-24 05:46] LABS: A/G RATIO 0.7 (0.7-1.9); ALBUMIN 2.5 G/DL (3.5-5.0); ALKALINE PHOSPHATASE 82 U/L (45-117); BUN (BLOOD UREA NITROGEN) 18 MG/DL (6-23); CALCIUM, SERUM 7.9 MG/DL (8.5-10.4); CHLORIDE, SERUM 108 MMOL/L (96-112); CO2 (CARBON DIOXIDE) 20 MMOL/L (24-34); GFR AFRICAN AMERICAN 84 ML/MIN (>=60); GFR NON AFRICAN AMERICAN 72 ML/MIN (>=60); GLOBULIN 3.7 G/DL (2.5-4.1); POTASSIUM, SERUM 4.5 MMOL/L (3.5-5.3); SGOT(AST) 35 U/L (5-40); SGPT(ALT) 37 U/L (5-65); SODIUM, SERUM 137 MMOL/L (135-148); TOTAL PROTEIN 6.2 G/DL (6.0-8.5)
[2016-07-24 05:49] LABS: DIRECT BILIRUBIN 0.2 MG/DL (0.0-0.4); GLUCOSE, SERUM 200 MG/DL (60-99); INDIRECT BILIRUBIN(NOT ORDER) 0.4 MG/DL (0.1-0.9); TOTAL BILIRUBIN 0.6 MG/DL (0-1.2)
[2016-07-25 06:23] LABS: BASOPHILS 0 %; EOSINOPHILS 0.1 %; EOSINOPHILS ABSOLUTE 0.01 10/3/uL (0.0-0.53); HEMATOCRIT 34.5 % (36.0-48.0); HEMOGLOBIN 11.1 g/dL (12.0-16.0); IMMATURE GRANULOCYTES 0.3 %; IMMATURE GRANULOCYTES ABSOLUTE 0.03 10/3/uL (0.0-0.11); LYMPHOCYTES 14.6 %; LYMPHOCYTES ABSOLUTE 1.51 10/3/uL (0.67-4.30); MEAN CORPUS HGB CONC 32.2 g/dL (32.0-36.0); MEAN CORPUSCULAR HEMOGLOB 29.2 pg (26.0-34.0); MEAN CORPUSCULAR VOLUME 90.8 fL (80-100); MEAN PLATELET VOLUME 11.4 fL (9.2-13.0); MONOCYTES 7.7 %; NEUTROPHILS 77.3 %; NEUTROPHILS ABSOLUTE 7.98 10/3/uL (2.02-8.40); PLATELET COUNT 192 10/3/uL (150-400); RBC DISTRIBUTION WIDTH 16.4 % (12.0-16.0); WHITE BLOOD CELLS 10.3 10/3/uL (4.5-10.5)
[2016-07-25 06:24] LABS: MANUAL DIFF NO %
[2016-07-25 06:36] LABS: ALBUMIN 2.6 G/DL (3.5-5.0); CALCIUM, SERUM 8.4 MG/DL (8.5-10.4); CHLORIDE, SERUM 108 MMOL/L (96-112); CO2 (CARBON DIOXIDE) 22 MMOL/L (24-34); CREATININE 1.07 MG/DL (0.55-1.02); GFR AFRICAN AMERICAN 59 ML/MIN (>=60); GFR NON AFRICAN AMERICAN 51 ML/MIN (>=60); PHOSPHORUS, SERUM 2.8 MG/DL (2.5-4.5); SODIUM, SERUM 140 MMOL/L (135-148)
[2016-07-25 06:38] LABS: BUN (BLOOD UREA NITROGEN) 24 MG/DL (6-23); GLUCOSE, SERUM 118 MG/DL (60-99); POTASSIUM, SERUM 4.4 MMOL/L (3.5-5.3)
[2016-07-26 07:11] LABS: BASOPHILS 0.1 %; BASOPHILS ABSOLUTE 0.01 10/3/uL (0.0-0.16); EOSINOPHILS 0.7 %; EOSINOPHILS ABSOLUTE 0.06 10/3/uL (0.0-0.53); HEMOGLOBIN 11.2 g/dL (12.0-16.0); IMMATURE GRANULOCYTES 0.2 %; IMMATURE GRANULOCYTES ABSOLUTE 0.02 10/3/uL (0.0-0.11); LYMPHOCYTES 30.3 %; LYMPHOCYTES ABSOLUTE 2.57 10/3/uL (0.67-4.30); MEAN CORPUSCULAR HEMOGLOB 28.7 pg (26.0-34.0); MEAN CORPUSCULAR VOLUME 89.7 fL (80-100); MEAN PLATELET VOLUME 11.2 fL (9.2-13.0); MONOCYTES 9.6 %; MONOCYTES ABSOLUTE 0.81 10/3/uL (0.21-1.20); NEUTROPHILS 59.1 %; PLATELET COUNT 198 10/3/uL (150-400); RBC DISTRIBUTION WIDTH 16.2 % (12.0-16.0); WHITE BLOOD CELLS 8.5 10/3/uL (4.5-10.5)
[2016-07-26 07:13] LABS: MANUAL DIFF NO %
[2016-07-26] MEDS ORDERED: XARELTO20 MG PO (12:29)
[2016-07-26] MEDS ORDERED: LEVAQUIN750 MG PO (12:29)
[2016-07-26] MEDS ORDERED: FLAG500TAB PO (12:30)
[2016-07-26] MEDS ORDERED: LOP50 PO (12:31)
[2016-07-26] MEDS ORDERED: PCET PO (12:32)
== END 2016-07-26 14:15 | disposition home or self-care (01) | DRG 418 ==
LOC: ER 10:35 → 6NO 12:21
PROVIDERS: Colon & Rectal Surgery; Emergency Medicine; Internal Medicine; Surgery
PROC: 0FT44ZZ Resection of Gallbladder, Percutaneous Endoscopic Approach (ICD-10-PCS; principal; 2016-07-23 16:00)
DX: K81.0 Acute cholecystitis (principal); Z68.41 Body mass index [BMI] 40.0-44.9, adult; I48.0 Paroxysmal atrial fibrillation; I25.10 Atherosclerotic heart disease of native coronary artery without angina pectoris; R53.1 Weakness; B91 Sequelae of poliomyelitis; E66.01 Morbid (severe) obesity due to excess calories; E78.5 Hyperlipidemia, unspecified; I10 Essential (primary) hypertension; I25.2 Old myocardial infarction; I49.1 Atrial premature depolarization; Z90.710 Acquired absence of both cervix and uterus; Z95.5 Presence of coronary angioplasty implant and graft; Z88.0 Allergy status to penicillin; Z88.2 Allergy status to sulfonamides; Z87.891 Personal history of nicotine dependence; Z83.3 Family history of diabetes mellitus; Z82.3 Family history of stroke; Z79.82 Long term (current) use of aspirin
CPT/HCPCS: 71010; 74176; 80048; 80053; 80069; 80076; 82247; 82248; 83605; 83690; 83735; 84145; 84439; 84443; 84484; 85025; 85610; 85730; 87040; 88304; 93005; 93306; 93971; 96374; 96376; 99291; A9270-GY; J1170; J2370; J2405; J2710; J3010